=== PATIENT | male | born 1955 | race Caucasian/White ===

== ENCOUNTER 2018-11-07 12:07 | Emergency (ER) | payer BC ==
[~2018-11-07] VITALS: Ht 185.4 cm; Wt 81.6 kg
--- NOTE | 2018-11-07 12:15 | NUR ---
PATIENT C/O UPPER ABDOMINAL PAIN AND BLOATING/ABDOMINAL DISTENTION. PLACED ON A MONITOR. IV PLACED.
[2018-11-07 12:30] LABS: BASOPHILS # (AUTO) 0.1 K/uL (0.0-8.0); BASOPHILS % (AUTO) 0.6 % (0.0-2.0); EOSINOPHILS # (AUTO) 0.2 K/uL (0.0-0.7); EOSINOPHILS % (AUTO) 1.4 % (0.0-7.0); HEMATOCRIT 46.5 % (36.7-47.1); HEMOGLOBIN 15.3 g/dL (12.5-16.3); LYMPHOCYTES # (AUTO) 12.5 K/uL (20.0-40.0); LYMPHOCYTES % (AUTO) 70.6 % (20.5-51.5); MEAN CORPUSCULAR HGB CONC 33 g/dL (32.5-36.3); MEAN CORPUSCULAR VOLUME 88.6 fL (73.0-96.2); MONOCYTES # (AUTO) 1.3 K/uL (2.0-10.0); MONOCYTES % (AUTO) 7.1 % (0.0-11.0); NEUTROPHILS # (AUTO) 3.6 K/uL (1.8-8.9); NEUTROPHILS % (AUTO) 20.3 % (38.5-71.5); PLATELET COUNT (AUTO) 183 K/uL (152-348); RED BLOOD CELL COUNT(AUTO) 5.26 MIL/uL (4.06-5.63); WHITE BLOOD COUNT (AUTO) 17.7 K/uL (3.6-10.2)
[2018-11-07 12:38] LABS: CREATININE 1.2 mg/dL (0.6-1.3); POTASSIUM 3.7 mmol/L (3.5-5.1)
[2018-11-07 12:44] LABS: BILIRUBIN,DIRECT 0.2 mg/dL (0.0-0.2); BILIRUBIN,TOTAL 0.6 mg/dL (0.2-1.0); TOTAL PROTEIN, SERUM 7.3 g/dL (6.4-8.2)
[2018-11-07 13:10] LABS: EOSINOPHILS % (MANUAL) 2 % (0-8); LYMPHOCYTES % (MANUAL) 62 % (20-40); MONOCYTES % (MANUAL) 9 % (2-10); NEUTROPHILS % (MANUAL) 23 % (42-75)
[2018-11-07] MEDS ORDERED: LIDOCAINE VISCUS 2% 15 ML UDC MM ONE (13:15)
[2018-11-07] MEDS ORDERED: MAG HYDROX/AL HYDROX/SIMETH 30 ML LIQUID UDC PO ONE (13:15)
[2018-11-07] MEDS ORDERED: MAG HYDROX/AL HYDROX/SIMETH 30 ML LIQUID UDC ONE (13:20)
[2018-11-07] MEDS ORDERED: LIDOCAINE VISCUS 2% 15 ML UDC ONE (13:21)
[2018-11-07] MEDS ORDERED: SWABABLE VALVE TRANSFER SET EA MC ONE (13:27)
[2018-11-07] MEDS ORDERED: IOHEXOL 300MG/ML 100 ML INFUS..BTL ONE (13:27)
[2018-11-07] MEDS ORDERED: IV NORMAL SALINE 250 ML IV ONE (13:27)
--- NOTE | 2018-11-07 13:30 | NUR ---
PATIENT STATES PAIN HAS NOT DIMINISHED. DR LIZETH HAINES.
[2018-11-07] MEDS ORDERED: MORPHINE SULFATE 4 MG/1 ML DISP.SYRIN IV ONE (14:30)
[2018-11-07] MEDS ORDERED: ONDANSETRON 4 MG/2 ML VIAL IV ONE (14:30)
[2018-11-07 14:32] LABS: *BILIRUBIN,URIN NEGATIVE (NEGATIVE); *BLOOD, URINE NEGATIVE (NEGATIVE); *CLARITY,URINE CLEAR (CLEAR); *COLOR,URINE YELLOW (YELLOW); *KETONES,URINE NEGATIVE (NEGATIVE); *UROBILINOGEN,URINE 0.2 E.U./dl (NORMAL); LEUKOCYTE ESTERASE ,URINE NEGATIVE (NEGATIVE); NITRITE, URINE NEGATIVE (NEGATIVE); UGLUCOSE NEGATIVE (NEGATIVE)
[2018-11-07] MEDS ORDERED: MORPHINE SULFATE 4 MG/1 ML DISP.SYRIN ONE (14:37)
[2018-11-07] MEDS ORDERED: ONDANSETRON 4 MG/2 ML VIAL ONE (14:37)
--- NOTE | 2018-11-07 14:51 | NUR ---
MEDICATION GIVEN ORDERED FOR C/O PAIN.
--- NOTE | 2018-11-07 15:10 | NUR ---
PATIENT STATES PAIN HAS DIMINISHED SOME BUT FEELS "GASSY".
--- NOTE | 2018-11-07 15:16 | NUR ---
DR STANLEY AT BEDSIDE SPEAKING TO PATIENT.
[2018-11-07 16:19] VITALS: BP 137/82
--- NOTE | 2018-11-07 16:20 | NUR ---
IV removed. Catheter intact and site benign. Pressure and 4x4 gauze applied to site. No bleeding noted.
--- NOTE | 2018-11-07 16:20 | NUR ---
DC, RX AND FOLLOW UP INSTRUCTIONS GIVEN AND EXPLAINED TO PATIENT WHO STATES HE UNDERSTANDS ALL INSTRUCTIONS FRIEND TO DRIVE HOME
--- NOTE | 2018-11-07 16:20 | NUR ---
PATIENT STATE HE DOES NOT WANT TO STAY IN THE HOSPITAL.
== END 2018-11-07 16:20 | disposition left against medical advice (07) ==
LOC: ER 12:07
DX: R10.13 Epigastric pain (principal); R07.9 Chest pain, unspecified; Z95.0 Presence of cardiac pacemaker
CPT/HCPCS: 36415; 71045; 74177; 76705; 80048; 80076; 81001; 83690; 84484; 85025; 85730; 93005; 96374; 96375; 99284; J2270; J2405; Q9967; 70030-TC; A4663; J7050